=== PATIENT | male | born 1955 | race Caucasian/White ===

== ENCOUNTER 2020-02-08 12:18 | Inpatient (IN) | payer MEDICARE, OTHER ==
[~2020-02-08] VITALS: Ht 182.9 cm; Wt 86.2 kg
--- NOTE | 2020-02-08 12:20 | NUR ---
CAME IN FOR ABDOMINAL PAIN S/P HERNIA SURGERY. REFUSING TO SPECIFY. TO ER BED 10, HOOKED TO MONITOR, CHANGED TO HOSP GOWN, WARM BLANKET PROVIDED, PATIENT AAO x 3, BREATHING EVEN AND UNLABORED. AWAITING MD JACOB
--- NOTE | 2020-02-08 12:40 | NUR ---
DR LOBATO AT BEDSIDE
[2020-02-08 13:12] LABS: BASOPHILS % (AUTO) 0.6 % (0.0-2.0); EOSINOPHILS % (AUTO) 4.4 % (0.0-6.0); HEMATOCRIT 34 % (39-51); HEMOGLOBIN 10.9 g/dL (13.5-17.5); LYMPHOCYTES # (AUTO) 1.3 /CMM (0.8-4.8); MEAN CORPUSCULAR HGB CONC 32 g/dl (31.0-36.0); MEAN CORPUSCULAR VOLUME 84 fL (80-96); MONOCYTES # (AUTO) 1.1 /CMM (0.1-1.30); MONOCYTES % (AUTO) 15.2 % (2.0-12.0); NEUTROPHILS # (AUTO) 4.5 /CMM (1.8-8.9); NEUTROPHILS % (AUTO) 61.8 % (43.0-81.0); PLATELET COUNT (AUTO) 192 /CMM (150-450); RED BLOOD CELL COUNT(AUTO) 3.99 MIL/uL (4.5-6.0); WHITE BLOOD COUNT (AUTO) 7.3 K/uL (4.3-11.0)
[2020-02-08 13:25] LABS: ALBUMIN 3.3 g/dL (3.4-5.0); BILIRUBIN,DIRECT 0.2 mg/dL (0.0-0.2); BILIRUBIN,TOTAL 0.7 mg/dL (0.2-1.0); CALCIUM, SERUM 9.1 mg/dL (8.5-10.1); CREATININE 1.4 mg/dL (0.6-1.3); POTASSIUM 3.7 mmol/L (3.5-5.1); TOTAL PROTEIN, SERUM 7.3 g/dL (6.4-8.2)
[2020-02-08 13:47] LABS: EOSINOPHILS % (MANUAL) 2 % (0-4); LYMPHOCYTES % (MANUAL) 14 % (16-48); MONOCYTES % (MANUAL) 19 % (0-11.0); NEUTROPHILS % (MANUAL) 65 (42-76)
--- NOTE | 2020-02-08 16:02 | NUR ---
PER PATIENT, HE CAME FROM [facility] IN [place].
[2020-02-08] MEDS ORDERED: QUET200T PO (16:32)
[2020-02-08] MEDS ORDERED: SILD25TA10 PO (16:32)
--- NOTE | 2020-02-08 16:32 | NUR ---
ERIK CAO CONTACTED PORCELAIN TURNER JESSICA AND WILL GIVE US AN UPDATE TO WHERE PATIENT WILL BE PLACED.
[2020-02-08 16:51] LABS: ALCOHOL, BLOOD < 3 mg/dL (0-0)
[2020-02-08 16:52] LABS: ACETAMINOPHEN < 2 ug/ml (10-30); SALICYLATE < 2.8 mg/dL (2.8-20.0)
--- NOTE | 2020-02-08 17:32 | NUR ---
PERFORMANCE CONSULTANT CANDY CONTACTED. ETA 1HOUR
--- NOTE | 2020-02-08 17:49 | NUR ---
RAPID COVID SWAB DONE AND SENT TO LAB.
--- NOTE | 2020-02-08 18:19 | NUR ---
PER DIEM PHYSICAL THERAPIST PINKY AT BEDSIDE
--- NOTE | 2020-02-08 18:38 | NUR ---
COVID RESULT: NEGATIVE
--- NOTE | 2020-02-08 18:50 | NUR ---
CALLED NURSING SUPP FOR [facility] BED.
--- NOTE | 2020-02-08 19:24 | NUR ---
REPORT GIVEN TO SANDRA BERG FOR REID
--- NOTE | 2020-02-08 19:33 | NUR ---
GPS BED ASSIGNMENT 214-B
--- NOTE | 2020-02-08 19:44 | NUR ---
REPORT GIVEN TO SHANNON BERG FOR REID.
[2020-02-08 19:50] VITALS: BP 143/68
--- NOTE | 2020-02-08 19:55 | NUR ---
PATIENT TAKEN UP TO ASSIGNED ROOM
--- NOTE | 2020-02-08 19:58 | NUR ---
GPS RN-NOTE:ADMISSION ADMITTED A 64-YR OLD MALE, FROM ON LICENSE OF [facility]. ADMITTED ON A 5150 FOR GD. PER HOLD, PT. STATED "I'VE BEEN WALKING A LOT I DON'T KNOW HOW LONG I'VE BEEN WALKING" I SLEEP ON THE SIDEWALK AND I DID NOT EAT FOR COUPLE OF DAYS. HAS PERIOD OF CONFUSION, DISORIENTED ON THE PRESENT DATE AND DAYS, HYPERVERBAL, DISORGANIZED AND DELUSIONAL. UPON FACE TO FACE ASSESSMENT, PATIENT IS A/OX1-2, UNCOOPERATIVE, IRRITABLE, ANGRY, REFUSED TO ANSWER QUESTIONS APPROPRIATELY. AMBULATORY WITH STEADY GAIT. REORIENTATION PROVIDED. PT WAS ADVISED OF HIS HOLD. PT'S RIGHTS HANDBOOK AND A GUIDE TO PRESCRIPTION MEDICATIONS GIVEN. IN NO APPARENT DISTRESS NOTED. PT BELONGINGS WERE INVENTORIED AND CHECKED FOR CONTRABAND. PT. IS UNDER THE PSYCHIATRIC CARE OF DR. SALGADO ORDERS OBTAINED. AND THE MEDICAL CARE OF DR. REYNOSO NOTIFIED OF THE ADMISSION AND MED RECON NEEDS TO BE DONE. REFUSED SKIN BODY ASSESSMENT, REFUSED TO SIGN ADMISSION CONSENT AND REFUSED TO HAVE HIS BLOOD SUGAR CHECK WELL. EXPLAINED TO PT REGARDING THE IMPORTANCE OF BEING COMPLIANT WITH TREATMENT AND CARE. PATIENT STRONGLY REFUSED. BED LOCKED AND PLACED IN LOWEST POSITION TO MAINTAIN SAFETY. FALL PRECAUTIONS IMPLEMENTED. WILL CONTINUE TO MONITOR Q15 MINS. FOR SAFETY AND BEHAVIOR. CONTACTED PT'S FATHER LIAM JERNIGAN PHONE IS NOT WORKING. WILL ENDORSE TO THE DAY SHIFT NURSE FOR CONTINUITY OF CARE.
[2020-02-08] MEDS ORDERED: MAGNESIUM HYDROXIDE 30 ML UDC PO PRN (20:30)
[2020-02-08] MEDS ORDERED: MAG HYDROX/AL HYDROX/SIMETH 30 ML UDC PO PRN (20:30)
[2020-02-08] MEDS ORDERED: ZOLPIDEM TARTRATE 5 MG TABLET PO PRN (20:30)
[2020-02-08] MEDS ORDERED: ACETAMINOPHEN 325 MG TABLET PO PRN (20:30)
[2020-02-08] MEDS ORDERED: BLOOD SUGAR DIAGNOSTIC 1 EACH STRIP IN ONE (21:00)
[2020-02-09] MEDS: DIVALPROEX SODIUM 250 MG TABLET.DR PO SCH (17:15)
[2020-02-09] MEDS: LORAZEPAM 1 MG TABLET PO PRN (20:08)
--- NOTE | 2020-02-09 20:09 | NUR ---
GPS RN NOTES: AT 20:05 PT COMPLAINED OF ANXIETY LEVEL OF 7/10 AND REQUESTED FOR ATIVAN. ATIVAN 1MG 1TAB GIVEN PO PRN ORDERED. PT CURRENTLY LAYING ON BED. NO S/S OF DISTRESS. WILL CONTINUE TO MONITOR.
[2020-02-09] MEDS: QUETIAPINE FUMARATE 100 MG TABLET PO SCH (22:04)
--- NOTE | 2020-02-10 06:25 | NUR ---
GPS RN CLOSING NOTES: PT AWAKE, ALERT AND ORIENTED X2. LAYING ON BED. MED COMPLAINT, REFUSED WEEKLY SKIN CHECK. SLEPT 9HRS. NO S/S OF DISTRESS. RESPIRATION EVEN AND UNLABORED WITH EQUAL RISE AND FALL OF THE CHEST. ALL PT CARE NEEDS MET ANTICIPATED. WILL CONTINUE TO MONITOR AND ENDORSE TO AM SHIFT.
[2020-02-10] MEDS: DIVALPROEX SODIUM 250 MG TABLET.DR PO SCH (08:36)
--- NOTE | 2020-02-10 15:57 | NUR ---
INDIVIDUAL INTERVENTION: SW met with pt at bedside pt was asleep and not easily roused by verbal cues.
[2020-02-10] MEDS: QUETIAPINE FUMARATE 100 MG TABLET PO SCH (21:51)
--- NOTE | 2020-02-10 21:51 | NUR ---
GPS-RN NOTE: MEDICATION REFUSAL PATIENT REFUSED SCHEDULED SEROQUEL 200MG FOR TONIGHT. EXPLAINED TO PT. THE IMPORTANCE REGARDING MEDICATION COMPLIANCE BUT PATIENT CONTINUES TO REFUSE. PATIENT STATED "DAMN IT, I DON'T WANNA TAKE IT". WILL CONTINUE TO MONITOR.
[2020-02-11 08:00] VITALS: BP 134/93
[2020-02-11] MEDS: risperiDONE 1 MG TABLET PO SCH ×3 (10:00→16:47)
--- NOTE | 2020-02-11 10:13 | NUR ---
GPS-RN NOTE: MEDICATION REFUSAL PATIENT REFUSED SCHEDULED RISPERIDONE 1 MG PO . EXPLAINED TO PT. THE IMPORTANCE REGARDING MEDICATION COMPLIANCE BUT PATIENT CONTINUES TO REFUSE. PATIENT STATED "THIS MEDICATIONS MAKING ME CRAZY ". WILL CONTINUE TO MONITOR.
--- NOTE | 2020-02-11 10:44 | NUR ---
INITIAL DISCHARGE PLAN: Pt states he lives at [facility] [phone] and wishes to return there. SW was unable to confirm if pt is a resident there and if he will be able to return. SW will help form a safe and proper discharge in collaboration with .
--- NOTE | 2020-02-11 14:36 | NUR ---
GPS RN NOTE: PT REFUSING FULL BODY ASSESSMENT NOTED JUST ON HIS ABDOMEN BELLY BUTTON RASH. WOUND CARE CONSULT ORDERED.
--- NOTE | 2020-02-11 14:43 | NUR ---
PT REFUSED LABS
[2020-02-11] MEDS: LORAZEPAM 1 MG TABLET PO PRN (15:31)
--- NOTE | 2020-02-11 15:31 | NUR ---
gps rn note: pt feeling anxious requesting ativan, ativan 1 mg po prn given per order
[2020-02-11 16:00] VITALS: BP 130/90
[2020-02-11 19:35] VITALS: BP 140/82
--- NOTE | 2020-02-11 23:00 | NUR ---
GPS RN NOTE: REFUSED LABS PT REFUSED LABS, LAB STATED THEY WILL TRY AGAIN IN THE MORNING, WILL CONTINUE TO MONITOR Q15MIN FOR SAFETY AND BEHAVIOR.
--- NOTE | 2020-02-12 06:10 | NUR ---
GPS RN NOTE: SKIN ASSESSMENT REFUSAL AND URINE CATCH PT WAS WAKING UP AND WENT IN TO CHECK ON PT, ASKED PT IF I WAS ABLE TO TAKE PICTURES OF HIS LEGS AND ABDOMEN, PT STATED "NO MAYBE LATER I WANT TO GO BACK TO SLEEP" PROBLEM AREAS INCLUDE - BILATERAL LOWER PORTION OF THE LEGS SWOLLEN, RED AND UMBILICUS AREA RED AND IRRITATED. ADVISED THE PT THE NEED TO OBTAIN URINE AND IF HE CAN DO SO IN URINAL PT SAID "LEAVE IM NOT DOING ANYTHING"
--- NOTE | 2020-02-12 06:22 | NUR ---
GPS RN NOTE: REFUSED AM LABS PT REFUSED AM LABS, ASKED THE PT 3X, TOLD THE PT THE RISK AND BENEFITS, PT STILL REFUSED, WILL PASS IT ON AND CONTINUE TO MONITOR Q15MIN FOR SAFETY AND BEHAVIOR.
[2020-02-12 08:00] VITALS: BP 136/71
--- NOTE | 2020-02-12 09:01 | NUR ---
[facility] REFERRAL: JUDITH faxed referral to [facility] ([facility]) [address] [id number] for review.
[2020-02-12] MEDS: risperiDONE 1 MG TABLET PO SCH ×2 (09:12→16:11)
--- NOTE | 2020-02-12 09:46 | NUR ---
SNF CONTACT: SW received a call from Kalli, palliative care coordinator at [facility] ([facility]) [address] [address] stating pt has been accepted to the facility.
--- NOTE | 2020-02-12 09:47 | NUR ---
WOUND CARE CONSULT: PT PRESENTS WITH UMBILICAL SURGICAL WOUND, PRESENT ON ADMISSION. PT STATES HAD SURGERY BY DR DEONNA BROCK IN [place] ON 12/02 AND THAT HE HAD MESH. RECOMMEND SURGICAL CONSULT. DR ESTRELLA NOTIFIED OF CONSULT REQUEST. IN AGREEMENT WITH PLAN OF CARE. Addendum: 02/12/20 at 0948 by SHARON GERMAIN WNDNU Amended: Links added.
--- NOTE | 2020-02-12 10:34 | NUR ---
WOUND CARE: PER DR ESTRELLA, DUE TO PT UMBILICAL HERNIA REPAIR WOUND WITH MESH, PT TO HAVE GENERAL SURGERY CONSULT WITH DR LONNIE STEINER. DR STEINER NOTIFIED OF CONSULT REQUEST. RECOMMENDATIONS MADE FOR WOUND CARE AND DISCUSSED WITH NURSING STAFF.
[2020-02-12] MEDS: LORAZEPAM 1 MG TABLET PO PRN ×2 (10:47→21:32)
--- NOTE | 2020-02-12 10:48 | NUR ---
gps rn note: pt feeling anxious requesting ativan, ativan 1 mg po prn given per order
--- NOTE | 2020-02-12 11:09 | NUR ---
SNF CONTACT: SW received a call from Kimmy technical coordinator at [facility] Address: [address] [place] [address] stating pt has been accepted to the facility.
--- NOTE | 2020-02-12 11:42 | NUR ---
FACILITY CONTACT: JUDITH received a call from Deangelo, home health administrator at [address] [address] confirming pt is able to return once stable for discharge. JUDITH informed him pt will be discharged on Monday02/14/20. Deangelo agreed with with discharge plan. Addendum: 02/13/20 at 1042 by SONJA WONG Deangelo, home health administrator ([phone])
--- NOTE | 2020-02-12 11:46 | NUR ---
INDIVIDUAL INTERVENTION: SW met with pt at bedside to discuss his discharge plan for Monday02/14/20. Pt states he wishes to return to his board and care and states he is not homeless as he has been living at that facility for over a year. JUDITH informed him that she received a call from Deangelo, firewall administrator confirming his return.
[2020-02-12 16:00] VITALS: BP 143/83
--- NOTE | 2020-02-12 16:38 | NUR ---
gps rn note: patient refused labs refused to collect ua
--- NOTE | 2020-02-12 19:30 | NUR ---
GPS RN NOTES: REFUSED LABS PT REFUSED LAB DRAW. EXPLAIN RISKS AND BENEFITS. PT STILL REFUSED X3. CONTINUE TO MONITOR AND TRY AGAIN IN THE MORNING.
[2020-02-12 20:04] VITALS: BP 149/97
--- NOTE | 2020-02-12 21:33 | NUR ---
GPS RN NOTES: ANXIOUS PT C/O OF FEELING ANXIOUS. PT REQUESTED ATIVAN. OFFERED ATIVAN PRN PO ORDERED. PT AGREED AND TOLERTAED MEDICATION WELL. CONTINUE TO MONITOR. M
--- NOTE | 2020-02-13 06:08 | NUR ---
GPS RN NOTES: PT REFUSED COVID TEST SWAB FOR PLACEMENT. EXPLAIN RISKS AND BENEFITS. PT STILL REFUSED X3. PT INCREASED AGITATION. WILL ENDORSE TO DAY SHIFT TO TRY AGAIN LATER TODAY. CONTINUE TO MONITOR.
[2020-02-13] MEDS: risperiDONE 1 MG TABLET PO SCH ×2 (08:11→16:38)
--- NOTE | 2020-02-13 10:47 | NUR ---
JUDITH COORDINATION OF CARE: JUDITH contacted [facility] Address: [address], [place] [address] to schedule pt a follow up appointment. Per bacon de rinder Pippa, pt has an appointment scheduled for Monday02/17/20 at 11:00am. JUDITH also contacted [facility] Address: [address], [place] [address] and pt was scheduled an appointment on Monday02/18/20 at 3:00pm.
[2020-02-13 16:00] VITALS: BP 143/77
--- NOTE | 2020-02-13 16:50 | NUR ---
RN NOTES PT REFUSED COVID TEST SWAB. EXPLAIN RISKS AND BENEFITS. PT STILL REFUSED X3. PT INCREASED AGITATION. WILL ENDORSE TO NEXT SHIFT TO TRY AGAIN LATER.
[2020-02-13] MEDS: LORAZEPAM 1 MG TABLET PO PRN (16:58)
[2020-02-13 20:07] VITALS: BP 137/80
--- NOTE | 2020-02-13 22:00 | NUR ---
GPS RN NOTE: REFUSED LABS PT REFUSED LABS, WILL LET DAY SHIFT KNOW TOMORROW AND CONTINUE TO MONITOR Q15 MIN FOR SAFETY AND BEHAVIOR.
[2020-02-14 08:00] VITALS: BP 149/87
--- NOTE | 2020-02-14 08:12 | NUR ---
RN NOTE- DRESSING CHANGE TO UMBILICAL SURGICAL SITE WOUND. DRESSING REMOVED. SLIGHT SERO-SANGUINOUS DRAINAGE NOTED. NO PURULENCE. NO ERYTHEMA. NO PAIN . IODOFORM GAUZE PACKED INTO WOUND LOOSELY. TELFA COVER DRESSING AND ABD APPLIED. WINDOW FRAME TAPED SECURELY. TOLERATED WELL.
--- NOTE | 2020-02-14 08:31 | NUR ---
DISCHARGE NOTE: Pt will be discharged at 11:00am via [facility] voucher to [facility] [address] [place] [address] ). Pt has no family to notify. Pts mood is labile with congruent affect. Pt denied visual/auditory hallucinations and denied suicidal/homicidal ideation. Pt is alert and oriented x4 and is ambulatory. Pt is appropriately dressed and groomed. Pt denies being homeless and states he has been living at the [facility] for a year. SW confirmed pts placement with [facility] records administrator Deangelo ([phone]). Pt will follow up with Psychiatrist: [facility] Address: [address] [place] [address] on Monday02/17/20 at 11:00am and with [facility] Address: [address] [place] [address] on Monday02/18/20 at 3:00pm. The multidisciplinary exit care form was done, printed, signed, and given to the patient.
[2020-02-14] MEDS: risperiDONE 1 MG TABLET PO SCH (08:46)
--- NOTE | 2020-02-14 11:05 | NUR ---
RN NOTE DISCHARGE- PT DC AT THIS TIME TO [facility] IN [place]. PT ALERT ORIENTED TO PERSON AND PLACE. DENIES SI HI AH VH. VS STABLE, DRESSING CHANGE COMPLETED THIS MORNING. PT REFUSED PHOTOGRAPHS HE DIDN'T WANT BANDAGES REMOVED AGAIN . ID [id number] REMOVED. VALUABLES RETURNED TO PT AND SIGNED FOR. DC PLANNING REVIEWED W PT AND UNDERSTOOD. ESCORTED OFF UNIT BY STAFF.
== END 2020-02-14 11:05 | disposition home or self-care (01) | DRG 885 ==
LOC: ER 12:23 → GPS 19:40
PROVIDERS: ADMIT Psychiatry & Neurology Psychiatry; ATTEND Internal Medicine
DX: F25.0 Schizoaffective disorder, bipolar type (principal); E43 Unspecified severe protein-calorie malnutrition; N17.9 Acute kidney failure, unspecified; N18.9 Chronic kidney disease, unspecified; F23 Brief psychotic disorder; Z59.0 Homelessness; Z68.25 Body mass index [BMI] 25.0-25.9, adult; F41.9 Anxiety disorder, unspecified; Z73.6 Limitation of activities due to disability; M62.81 Muscle weakness (generalized); E88.09 Other disorders of plasma-protein metabolism, not elsewhere classified; F19.10 Other psychoactive substance abuse, uncomplicated; I12.9 Hypertensive chronic kidney disease with stage 1 through stage 4 chronic kidney disease, or unspecified chronic kidney disease; D63.1 Anemia in chronic kidney disease; F39 Unspecified mood [affective] disorder; S31.105A Unspecified open wound of abdominal wall, periumbilic region without penetration into peritoneal cavity, initial encounter; X58.XXXA Exposure to other specified factors, initial encounter; Y93.9 Activity, unspecified; Y92.89 Other specified places as the place of occurrence of the external cause; Z98.890 Other specified postprocedural states
CPT/HCPCS: 36415; 80048-TC; 80076-TC; 83690-TC; 85025-TC; 87081-TC; 97116-TC; 97530-TC; A6253; A6407; C9803-CS; G0480